=== PATIENT | male | born 1960 | race Hispanic/Latino ===

== ENCOUNTER 2018-08-14 15:37 | Emergency (ER) | payer OTHER ==
[~2018-08-14 15:37] MED LIST: ISOVUE-370 76%-LOCM 1 ML ONE
[2018-08-14 16:02] LABS: #Basophils 0.1 thou/uL (0.0-0.2); #Eosinphils 0.4 thou/uL (0.0-0.7); #Lymphocytes 3.3 thou/uL (1.20-3.40); #Monocytes 0.9 thou/uL (0.11-0.59); #Neutrophils 4.5 thou/uL (1.40-6.50); %Basophils 0.6 % (0.0-1.0); %Eosinophils 4.5 % (0.0-10.0); %Monocytes 9.8 % (0.0-10.0); Mean Corpuscular Hemoglobin 30.3 pg (27.0-31.0); Mean Platelet Volume 9.2 fL (7.4-10.4); Platelet Count 187 thou/uL (130-400); RBC Distribution Width 12.5 % (11.5-14.5); Red Blood Cell (RBC) Count 4.94 mill/uL (4.70-6.10); White Blood Cell (WBC) Count 9.2 thou/uL (4.8-10.8)
--- NOTE | 2018-08-14 16:23 | RAD ---
PORTABLE CHEST ONE VIEW: 08/14/18 at 3:46 p.m. HISTORY: Chest pain. FINDINGS: Comparison is made with the exam of 12/18/07. The heart size is normal. The lungs are well expanded without focal areas of consolidation, pneumotho rax or pleural effusions. IMPRESSION: No radiographic evidence of acute cardiopulmonary process. POS: [facility]
[2018-08-14 16:25] LABS: ALT (SGPT) 46 U/L (8-55); AST (SGOT) 30 U/L (5-34); Albumin 4.3 g/dL (3.5-5.0); Alkaline Phosphatase 81 U/L (40-150); Anion Gap 14 mmol/L (10-20); BUN (Urea Nitrogen) 20 mg/dL (8.4-25.7); Bilirubin, Total 0.8 mg/dL (0.2-1.2); CK (CPK) 180 U/L (30-200); Calc. Creatinine Clearance 0 mL/min (70-130); Calcium 9.6 mg/dL (7.8-10.44); Carbon Dioxide 24 mmol/L (22-29); Chloride 106 mmol/L (98-107); Estimated GFR-MDRD 69; Globulin 3.7 g/dL (2.4-3.5); Glucose 91 mg/dL (70-105); Lipase 17 U/L (8-78); Potassium 3.7 mmol/L (3.5-5.1); Sodium 140 mmol/L (136-145)
--- NOTE | 2018-08-14 19:53 | CT ---
CT ARTERIOGRAM CHEST WITH IV CONTRAST AND 3D MIP IMAGIN08/14/18 HISTORY: Chest pain. FINDINGS: There is good contrast opacification of the pulmonary arteries and thoracic aorta. Normal origin of t he great vessels at the aortic arch. No pleural fluid, pneumothorax or mediastinal adenopathy. Benign appearing sclerotic lesion involves the posterior aspect of the right fifth rib. The inferior most i mage partially demonstrates a calcification within a nondilated calyx at the mid portion right kidney . IMPRESSION: No CT evidence of pulmonary embolus. Nonobstructing small right renal calculus. POS: [facility]
== END 2018-08-14 20:26 | disposition home or self-care (01) ==
LOC: ERS 15:37
DX: R07.89 Other chest pain (principal); I10 Essential (primary) hypertension; F17.210 Nicotine dependence, cigarettes, uncomplicated; Z79.899 Other long term (current) drug therapy
CPT/HCPCS: 71045; 71275; 80053; 82550; 83690; 84484; 85025; 93005; 94760; Q9966

== ENCOUNTER 2019-07-07 06:47 | Emergency (ER) | payer OTHER ==
[2019-07-07 07:11] LABS: Bilirubin Negative (Negative); Blood, Urine Negative (Negative); Clarity Clear (Clear); Glucose, Urine (Dipstick) Normal (Negative); Leukocyte Negative Leu/uL (Negative); Nitrite Negative (Negative); Protein, Urine (Dipstick) Negative (Neg-Trace); Urobilinogen Normal mg/dL (Less than 2)
[2019-07-07 07:15] LABS: #Basophils 0.1 thou/uL (0.0-0.2); #Eosinphils 0.4 thou/uL (0.0-0.7); #Monocytes 0.7 thou/uL (0.11-0.59); #Neutrophils 5.8 thou/uL (1.40-6.50); %Basophils 0.7 % (0.0-1.0); %Lymphocytes 29.7 % (21.0-51.0); %Monocytes 7.4 % (0.0-10.0); %Neutrophils 58.3 % (42.0-75.0); Hemoglobin 15.6 g/dL (14.0-18.0); Mean Corpuscular HGB CONC 34.2 g/dL (32.0-36.0); Mean Corpuscular Hemoglobin 30.4 pg (27.0-31.0); Mean Platelet Volume 8.9 fL (7.4-10.4); Platelet Count 211 thou/uL (130-400); RBC Distribution Width 11.9 % (11.5-14.5); Red Blood Cell (RBC) Count 5.13 mill/uL (4.70-6.10)
[2019-07-07 07:26] LABS: ALT (SGPT) 47 U/L (8-55); AST (SGOT) 25 U/L (5-34); Albumin 4.3 g/dL (3.5-5.0); Alkaline Phosphatase 97 U/L (40-110); Anion Gap 12 mmol/L (10-20); BUN (Urea Nitrogen) 14 mg/dL (8.4-25.7); Bilirubin, Total 0.7 mg/dL (0.2-1.2); Calc. Creatinine Clearance 0 mL/min (70-130); Calcium 9.3 mg/dL (7.8-10.44); Carbon Dioxide 26 mmol/L (22-29); Chloride 105 mmol/L (98-107); Estimated GFR-MDRD 71; Globulin 3.8 g/dL (2.4-3.5); Glucose 93 mg/dL (70-105); Lipase 14 U/L (8-78); Protein, Total 8.1 g/dL (6.0-8.3); Sodium 139 mmol/L (136-145)
--- NOTE | 2019-07-07 09:13 | CT ---
ABDOMEN AND PELVIC CT SCAN WITHOUT IV CONTRAST: Date: 07/07/2019 HISTORY: Left flank pain for 2 days. Left leg weakness. FINDINGS: Minimal linear and parenchymal changes are noted in the posterior lower lobes with some minimal pleur al thickening, nonspecific, probably related to some dependent positioning. Fatty changes noted in th e liver with some fatty sparing adjacent to the gallbladder. No evidence for overt gallstones. Pancre as, spleen, and adrenal glands are unremarkable. Tiny nonobstructing right renal calculus. No evidenc e for acute obstruction. Normal appearing appendix. Small bilateral fat-containing inguinal hernia s. Degenerative disease of the lumbar spine. IMPRESSION: 1. Tiny nonobstructing right renal calculus. 2. No evidence for acute obstruction. 3. Normal appearing appendix. 4. Small fat-containing inguinal hernias. 5. Fatty appearing liver. 6. Probable small hiatal hernia. 7. No other acute process. POS: [facility]
[2019-07-07] MEDS ORDERED: Ketorolac Tromethamine 60 MG/2 ML VIAL ONE (09:39)
== END 2019-07-07 10:42 | disposition home or self-care (01) ==
LOC: ERS 06:47
DX: M54.5 Low back pain (principal); R10.812 Left upper quadrant abdominal tenderness; R10.813 Right lower quadrant abdominal tenderness; I10 Essential (primary) hypertension; F17.210 Nicotine dependence, cigarettes, uncomplicated; Z79.899 Other long term (current) drug therapy
CPT/HCPCS: 36415; 74176; 74177; 80053; 81003; 83690; 85025; 96372; J1885

== ENCOUNTER 2021-06-06 07:42 | Outpatient (CLI) | payer OTHER ==
[2021-06-06] MEDS ORDERED: Iopamidol 370 76% 100 ML VIAL ONE (11:58)
== END 2021-06-06 07:43 | disposition home or self-care (01) ==
LOC: CT 07:42
DX: B18.2 Chronic viral hepatitis C (principal); R16.0 Hepatomegaly, not elsewhere classified; N28.1 Cyst of kidney, acquired; N20.0 Calculus of kidney
CPT/HCPCS: 74170; 82565

== ENCOUNTER 2022-11-23 07:43 | Outpatient (CLI) | payer OTHER | END 2022-11-23 07:44 | disposition home or self-care (01) | LOC: BICULT 07:43 | DX: B18.2 Chronic viral hepatitis C (principal) | CPT/HCPCS: 76705 ==

== ENCOUNTER 2023-06-18 08:03 | Outpatient (CLI) | payer OTHER | END 2023-06-18 08:04 | disposition home or self-care (01) | LOC: ULT 08:03 | DX: B18.2 Chronic viral hepatitis C (principal); K76.89 Other specified diseases of liver; R16.0 Hepatomegaly, not elsewhere classified | CPT/HCPCS: 76705 ==